=== PATIENT | female | born 2000 | race African-American/Black ===

== ENCOUNTER 2022-04-02 10:36 | Emergency (ER) | payer OTHER, SELFPAY ==
[2022-04-02] VITALS (14 sets, daily range): BP systolic 112–123; BP diastolic 57–70; PULSE 70–87; RESP 17; TEMP 36.6; O2SAT 95–100; BMI 24.2
--- NOTE | 2022-04-02 11:33 | DI.US.S_ITS ---
PROCEDURE: US ABDOMEN LIMITED INDICATIONS: RUQ PAIN TECHNIQUE: Real-time focused scanning was performed of the abdomen, with image documentation. COMPARISON: None. FINDINGS: The liver is normal in size and demonstrates no focal lesions. No findings of gallstones or sludge are seen. The gallbladder wall is not thickened, measuring 3 mm or less. No specific pericholecystic fluid is seen. The sonographic Castillo sign is negative. There is no biliary dilatation, the common bile duct measures 3-4 mm. No significant pancreatic abnormality is seen on these images. IMPRESSION: The gallbladder demonstrates a normal sonographic appearance. No biliary dilatation is seen. Dictated by: Jeffery Álvarez M.D. on 04/02/2022 at 11:47 Approved by: Jeffery Álvarez M.D. on 04/02/2022 at 11:48
[2022-04-02 11:55] LABS: Amorphous Sediment Urine 2+; Bacteria Urine Many (>30); Culture Indicated Urine Specimen Cultured; Mucus Urine 1+ (Negative); RBC Urine 0-1/HPF (0-5/HPF); Squamous Epithelial Cell Urine 1-5 /HPF (0-5/HPF); WBC Urine 10-30/HPF (0-5/HPF)
[2022-04-02 11:56] LABS: Add Manual Diff / Slide Review NO; Basophils Absolute Auto 0 /uL (0-100); Basophils Percent Auto 0.5 % (0-2); Eosinophils Absolute Auto 0 /uL (0-450); Eosinophils Percent Auto 0.3 % (2-4); Hematocrit 41.2 % (36-46); Hemoglobin 13.3 g/dL (12.0-16.0); Lymphocytes Absolute Auto 1200 /uL (1100-4500); Lymphocytes Percent Auto 12.3 % (25-40); Mean Corpuscular HGB Conc 32.2 % (30-36); Mean Corpuscular Hemoglobin 26.9 PG (26-34); Mean Corpuscular Volume 83.7 fL (80-100); Monocytes Absolute Auto 600 /uL (0-900); Monocytes Percent Auto 6.1 % (3-14); Neutrophils Absolute Auto 7700 /uL (1500-7000); Neutrophils Percent Auto 80.8 % (50-75); Platelet Count 300 X10^3/uL (150-400); Red Blood Cell Count 4.92 X10^6/uL (4.0-5.2); Red Cell Distribution Width 12.6 % (11.6-14.8); White Blood Cell Count 9.5 X10^3/uL (4.5-11.0)
[2022-04-02 12:15] LABS: Alanine Aminotransferase 16 IU/L (<35); Albumin 4.7 g/dL (3.5-5.0); Albumin Globulin Ratio 1.1 (1.0-2.8); Alkaline Phosphatase 69 U/L (38-126); Aspartate Aminotransferase 23 IU/L (14-36); Bilirubin Total 0.5 mg/dL (0.2-1.3); Blood Urea Nitrogen 10 mg/dL (7-17); Carbon Dioxide 29 mmol/L (22-32); Chloride 101 mmol/L (98-107); Estimated Glomerular Filt Rate > 60 mL/min (>60); Globulin 4.3 g/dL (1.7-4.1); Glucose 96 mg/dL (70-100); HEMOLYSIS < 15 (0-50); Lipase 85 U/L (23-300); Potassium 4.6 mmol/L (3.4-5.1); Sodium 140 mmol/L (137-145)
--- NOTE | 2022-04-02 15:18 | DI.RAD.S_ITS ---
PROCEDURE: XR CHEST 2V INDICATIONS: right upper abd pain/eval pulmonary patholgy TECHNIQUE: 2 views of the chest were acquired. COMPARISON: None. FINDINGS: Surgical changes and devices: None. Lungs and pleura: Lungs are clear. No pleural effusions or pneumothorax. Mediastinum: Mediastinal contours are normal. Heart size is normal. Bones and chest wall: No suspicious bony abnormalities. Soft tissues appear unremarkable. IMPRESSION: No acute cardiopulmonary disease process. Dictated by: Carmela Chamorro MD, PhD on 04/02/2022 at 15:32 Approved by: Carmela Chamorro MD, PhD on 04/02/2022 at 15:33
[2022-04-02] MEDS: MAG HYDROX/ALUMINUM/SIMETH SUS 20 ML, LIDOCAINE VISCOUS 2% 15 ML PO (15:37)
[2022-04-02 16:31] LABS: D Dimer 843 ng/ml (<500)
--- NOTE | 2022-04-02 17:35 | DI.CT.S_ITS ---
PROCEDURE: CT ANGIO CHEST PE PROTOCOL INDICATIONS: eval pe, elevated dimer TECHNIQUE: After the administration of intravenous contrast, 2 mm thick sections acquired from the pulmonary apices to the posterior costophrenic angles. 3-dimensional maximum intensity projection (MIP) coronal and sagittal reformats were then acquired through the thorax. For radiation dose reduction, the following was used: automated exposure control, adjustment of mA and/or kV according to patient size. COMPARISON: None. FINDINGS: Image quality: Excellent. Pulmonary arteries: Pulmonary arteries are normal in size, and demonstrate no intraluminal filling defects to suggest central pulmonary embolism. Lungs and pleura: Lungs are clear. No pleural effusions or pneumothorax. Central and peripheral airways are patent. Mediastinum: Heart size is normal, without pericardial effusion. No mediastinal or hilar adenopathy. Thoracic aorta is normal in caliber and enhancement. Esophagus is normal in caliber, without hiatal hernia. Bones and chest wall: No suspicious bony lesions. Ribs and thoracic spine appear intact throughout. Thyroid gland is unremarkable. No axillary or supraclavicular adenopathy. Skin thickening at the armpits. Abdomen: Visualized upper abdominal solid organs appear normal in the early arterial phase of enhancement. IMPRESSION: 1. No pulmonary embolism. 2. No acute airspace opacity. Dictated by: Zafar Rojas M.D. on 04/02/2022 at 18:54 Approved by: Zafar Rojas M.D. on 04/02/2022 at 18:59
--- NOTE | 2022-04-02 17:59 | DI.CT.S_ITS ---
PROCEDURE: CT ABDOMEN PELVIS W CON INDICATIONS: abdominal pain TECHNIQUE: After the administration of oral and IV contrast, axial sections were acquired from the lung bases to the pubic symphysis. Coronal and sagittal reformats were performed. For radiation dose reduction, the following was used: automated exposure control, adjustment of mA and/or kV according to patient size. COMPARISON: [facility], CT, CT ANGIO CHEST PE PROTOCOL, 04/02/2022, 17:44. FINDINGS: Image quality: Excellent. Lung bases: Unremarkable. Heart: No significant findings. ABDOMEN: Liver: No focal lesion. Gallbladder: Not distended. Biliary ducts: Unremarkable. Pancreas: No peripancreatic fluid collection. Spleen: No splenomegaly. Adrenal Glands: No nodule seen. Kidneys and Ureters: No hydronephrosis. Stomach and Bowel: Stomach, small bowel loops, and colon are unremarkable. Somewhat prominent stool in the colon. The appendix is not dilated. Peritoneum: No abnormal intraperitoneal fluid. No free air. Ventral Wall: No hernia. Abdominal Nodes: No retroperitoneal or mesenteric adenopathy by size criteria. Vessels: Aorta and inferior vena cava are normal in size. PELVIS: Pelvic Organs: Ovaries appear prominent. Vertically oriented uterus. Bladder: No stones. Pelvic Nodes: No enlarged lymph nodes. Miscellaneous: No inguinal hernias are seen. Bones: No suspicious lesion. IMPRESSION: No acute inflammatory process. No free fluid. Somewhat prominent stool in the colon. Dictated by: Zafar Rojas M.D. on 04/02/2022 at 19:00 Approved by: Zafar Rojas M.D. on 04/02/2022 at 19:04
--- NOTE | 2022-04-04 20:47 | ED_ITS ---
HPI - Abdominal Pain General Chief Complaint: Abdominal Pain Stated Complaint: pain in liver, gull bladder area Time Seen by Provider: 04/02/22 15:09 Source: patient Mode of arrival: Ambulatory History of Present Illness HPI narrative: 21-year-old female presenting with a localized to the right upper quadrant of the abdomen, right lateral chest, symptoms are constant, moderate to severe, have been present for several days. 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 However, given persistent and worsening symptoms, patient further the emergency department for further evaluation. Patient denies association with diet. No fevers. No lower abdominal pain. Related Data Allergies Allergy/AdvReac Type Severity Reaction Status Date / Time No Known Drug Allergies Allergy Verified 04/02/22 11:25 Patient History Social History Smoking Status: Unknown if ever smoked Smoking Status: Unknown if ever smoked alcohol intake frequency: holidays/special occasions only Substance Use Type: does not use Exam Narrative Exam Narrative: Vitals reviewed. Nursing note reviewed Constitutional: interactive HENT: Moist mucous membranes EYES: No scleral icterus NECK: no masses CV: Well perfused peripherally, no cyanosis present PULM: Unlabored respirations, symmetric chest rise ABD: Non-distended MS: No gross deformities, no asymmetric edema noted SKIN: Warm and dry. PSYCH: Appropriate affect NEURO: Follows simple commands, moves extremities, interactive with exam Initial Vital Signs Initial Vital Signs: Vital Signs Temperature 97.8 F 04/02/22 11:25 Pulse Rate 70 04/02/22 11:25 Respiratory Rate 17 04/02/22 11:25 Blood Pressure 119/68 04/02/22 11:25 Pulse Oximetry 100 04/02/22 11:25 Oxygen Delivery Method 04/02/22 11:25 Course Orders Ordered: Discontinued Medications Al Hydrox/Mg Hydrox/Simethicone 20 ml/ Lidocaine HCl 15 ml 0 ml PO NOW ONE Stop: 04/02/22 15:17 Last Admin: 04/02/22 15:37 Dose: 35 ml Documented By: DIANE Ondansetron HCl (Ondansetron 4 Mg Odt) 4 mg PO NOW PRN PRN Reason: Nausea And Vomiting Ondansetron HCl (Ondansetron 4 Mg/2 Ml Inj) 4 mg IV NOW PRN PRN Reason: Nausea And Vomiting MDM - Abdominal Pain Lab Data Result diagrams: 04/02/22 11:45 04/02/22 11:45 Labs: Lab Results 04/02/22 04/02/22 04/02/22 Range/Units 11:30 11:45 11:45 WBC 9.5 (4.5-11.0) X10^3/uL RBC 4.92 (4.0-5.2) X10^6/uL Hgb 13.3 (12.0-16.0) g/dL Hct 41.2 (36-46) % MCV 83.7 (80-100) fL MCH 26.9 (26-34) PG MCHC 32.2 (30-36) % RDW 12.6 (11.6-14.8) % Plt Count 300 (150-400) X10^3/uL Neut % (Auto) 80.8 H (50-75) % Lymph % (Auto) 12.3 L (25-40) % [place] % (Auto) 6.1 (3-14) % Eos % (Auto) 0.3 L (2-4) % Baso % (Auto) 0.5 (0-2) % Neut # (Auto) 7700 H (4629-1788) /uL Lymph # (Auto) 1200 (7292-4240) /uL [place] # (Auto) 600 (0-900) /uL Eos # (Auto) 0 (0-450) /uL Baso # (Auto) 0 (0-100) /uL D-Dimer (<500) ng/ml Sodium 140 (137-145) mmol/L Potassium 4.6 (3.4-5.1) mmol/L Chloride 101 (98-107) mmol/L Carbon Dioxide 29 (22-32) mmol/L BUN 10 (7-17) mg/dL Creatinine 0.91 (0.52-1.04) mg/dL Estimated GFR > 60 (>60) mL/min BUN/Creatinine Ratio 11.0 (6-22) Glucose 96 (70-100) mg/dL Calcium 10.0 (8.4-10.2) mg/dL Total Bilirubin 0.5 (0.2-1.3) mg/dL AST 23 (14-36) IU/L ALT 16 (<35) IU/L Alkaline Phosphatase 69 (38-126) U/L Total Protein 9.0 H (6.3-8.2) g/dL Albumin 4.7 (3.5-5.0) g/dL Globulin 4.3 H (1.7-4.1) g/dL Albumin/Globulin Ratio 1.1 (1.0-2.8) Lipase 85 (23-300) U/L Urine RBC 0-1/hpf (0-5/HPF) Urine WBC 10-30/hpf H (0-5/HPF) Ur Squamous Epith Cells 1-5 /hpf (0-5/HPF) Amorphous Sediment 2+ Urine Bacteria Many (>30) H (None) Urine Mucus 1+ H (Negative) Ur Culture Indicated? Specimen cultured 04/02/22 Range/Units 11:45 WBC (4.5-11.0) X10^3/uL RBC (4.0-5.2) X10^6/uL Hgb (12.0-16.0) g/dL Hct (36-46) % MCV (80-100) fL MCH (26-34) PG MCHC (30-36) % RDW (11.6-14.8) % Plt Count (150-400) X10^3/uL Neut % (Auto) (50-75) % Lymph % (Auto) (25-40) % [place] % (Auto) (3-14) % Eos % (Auto) (2-4) % Baso % (Auto) (0-2) % Neut # (Auto) (6080-4119) /uL Lymph # (Auto) (3705-4503) /uL [place] # (Auto) (0-900) /uL Eos # (Auto) (0-450) /uL Baso # (Auto) (0-100) /uL D-Dimer 843 H (<500) ng/ml Sodium (137-145) mmol/L Potassium (3.4-5.1) mmol/L Chloride (98-107) mmol/L Carbon Dioxide (22-32) mmol/L BUN (7-17) mg/dL Creatinine (0.52-1.04) mg/dL Estimated GFR (>60) mL/min BUN/Creatinine Ratio (6-22) Glucose (70-100) mg/dL Calcium (8.4-10.2) mg/dL Total Bilirubin (0.2-1.3) mg/dL AST (14-36) IU/L ALT (<35) IU/L Alkaline Phosphatase (38-126) U/L Total Protein (6.3-8.2) g/dL Albumin (3.5-5.0) g/dL Globulin (1.7-4.1) g/dL Albumin/Globulin Ratio (1.0-2.8) Lipase (23-300) U/L Urine RBC (0-5/HPF) Urine WBC (0-5/HPF) Ur Squamous Epith Cells (0-5/HPF) Amorphous Sediment Urine Bacteria (None) Urine Mucus (Negative) Ur Culture Indicated? Point of care testing: Point of Care Testing Test Results Negative Urine Dip Bedside Urine Glucose Negative Bedside Urine Bilirubin - Negative Bedside Urine Ketone +/- 5 Urine Specific [place] 1.020 Bedside Urine Occult Blood - Negative Bedside Urine pH 6.0 Bedside Urine Protein - Negative Bedside Urine Urobilinogen - Negative Bedside Urine Nitrite - Negative Bedside Urine Leukocytes +/- 15 Esterase MDM Narrative Medical decision making narrative: 21-year-old female presenting with right upper quadrant abdominal pain and right anterior chest pain. Vital signs on presentation notable for no significant abnormalities. Physical exam on presentation notable for reassuring cardiopul monary exam, mild right upper quadrant abdominal pain, no peritonitis noted. Initial concern for acute intra-abdominal pathology including biliary pathology with cholecystitis, choledocholithiasis, cholangitis, pancreatitis, gastritis, occult pyelonephritis versus ureteral calculi, pulmonary embolism, pneumonia, viral syndrome, musculoskeletal strain. Broad screening labs obtained on presentation. Right upper quadrant ultrasound obtained and without clear evidence of biliary pathology. Screening labs notable for no elevation of the patient's LFTs or alk-phos to suggest choledocholithiasis. D-dimer obtained given patient's persistent right-sided chest pain and right upper abdominal pain concern pulmonary infarct, D-dimer is elevated and subsequent CT chest was obtained to further evaluate. CT chest abdomen and pelvis without clear evidence of acute pathology. Discussed findings with patient at bedside. On repeat evaluation, patient with stable exam. Given overall reassuring evaluation in the emergency department, discussed plan for discharge and close outpatient follow up. Discussed etiology to explain the patient's symptoms following extensive workup in the emergency department remains unclear. Close return precautions were discussed. Discharge Plan Departure Patient Disposition: Home Clinical Impression: Abdominal pain, Chest pain Activity Restrictions/Additional Instructions: We did not find any acute cause for your chest pain or abdominal pain as discus sed. Please follow up in the outpatient setting with your primary care physician. Please perform modified duty and not lift more than 15 lb over the next 3-5 days. Please return to the emergency department develops new or worsening symptoms. Referrals: *Temp,ED* [Primary Care Provider] - Stand Alone Forms: Patient Portal/API, Work Release Note
== END 2022-04-02 19:44 | disposition home or self-care (01) ==
PROVIDERS: Emergency Provider Emergency Medicine
DX: R10.11 Right upper quadrant pain (principal); R07.9 Chest pain, unspecified
CPT/HCPCS: 71046; 71275; 74177; 76705; 80053; 81003; 81015; 81025; 83690; 85025; 85379; 87086; 99283; 99284

== ENCOUNTER 2024-01-17 06:38 | Emergency (ER) | payer OTHER, SELFPAY ==
[2024-01-17 06:43] VITALS: BP 130/89; PULSE 74; RESP 18; TEMP 36.7; O2SAT 100; BMI 25.7
--- NOTE | 2024-01-17 06:43 | DI.RAD.S_ITS ---
PROCEDURE: XR TIBIA FUBULA RT 2V INDICATIONS: weight drop onto R you TECHNIQUE: 2 views of the tibia and fibula were acquired. COMPARISON: None. FINDINGS: Bones: No fractures or dislocations. No suspicious bony lesions. Soft tissues: No suspicious soft tissue calcifications or masses. IMPRESSION: No acute bony abnormality can be seen on these plain films. Dictated by: Jeffery Álvarez M.D. on 01/17/2024 at 6:08 Approved by: Jeffery Álvarez M.D. on 01/17/2024 at 6:09
[2024-01-17 06:47] VITALS: PULSE 71; O2SAT 99
--- NOTE | 2024-01-17 06:48 | PC.NURSE ---
Ice pack applied
[2024-01-17 07:00] VITALS: PULSE 71; O2SAT 99
--- NOTE | 2024-01-17 07:07 | ED_ITS ---
HPI - Extremity Injury (Lower) General Chief Complaint: Extremity Injury, Lower Stated Complaint: dropped a weight on rt leg Time Seen by Provider: 01/17/24 06:43 Source: patient Mode of arrival: Wheelchair History of Present Illness HPI Narrative: 23-year-old woman otherwise healthy, prior strokes fracture x3 in the right lower tibia. Was weight lifting this morning dropped to 45 lb plate on approximately the same area where the prior stress fractured has been. She had noticed that she has been having increasing pain and tenderness after a 2 mi run in the same place over the last week. She is concerned that she is recurrent stress fracture and acute injury from the trauma of dropping the weight on the anterior you. Related Data Allergies Allergy/AdvReac Type Severity Reaction Status Date / Time No Known Drug Allergies Allergy Verified 04/02/22 11:25 Review of Systems Review of Systems Narrative: Pertinent positive and negative findings as per HPI Patient History Medical History (Updated 01/17/24 @ 07:28 by Jessica Maria MD) Stress fracture Social History Smoking Status: Unknown if ever smoked Smoking Status: Unknown if ever smoked alcohol intake frequency: holidays/special occasions only Substance Use Type: does not use Exam Initial Vital Signs Initial Vital Signs: Vital Signs Temperature 98.1 F 01/17/24 06:43 Pulse Rate 74 01/17/24 06:43 Respiratory Rate 18 01/17/24 06:43 Blood Pressure 130/89 01/17/24 06:43 Pulse Oximetry 100 01/17/24 06:43 Oxygen Delivery Method Room Air 01/17/24 06:43 General: Alert appropriate in no acute distress Respiratory: Able to speak in full sentences, no obvious respiratory distress Skin: No obvious rashes, warm and dry Neurologic: Grossly intact no obvious asymmetries or abnormalities Psych: appropriate insight and affect, cooperative Extremity: Contusion without obvious hematoma over the right mid you. Point tenderness. No tenderness to the knee or ankle. She is able to bear weight. No tenderness to the gastroc or soleus Course Orders Ordered: ED Orders 01/17/24 06:43 XR tibia fibula RT 2V Stat Vital Signs Vital signs: Vital Signs - 8 hr 01/17/24 06:43 Temperature 98.1 F Pulse Rate 74 Respiratory Rate 18 Blood Pressure 130/89 Pulse Oximetry 100 Oxygen Delivery Method Room Air MDM - Extremity Injury (Lower) MDM Narrative Medical decision making narrative: 23-year-old woman with concern for recurrent stress fracture with increasing pain in the right anterior you over the last week. She has again stopped running. She had been doing more rowing, weight lifting and today dropped to 45 lb plate on her leg. Comes in for evaluation. X-rays do not show acute hematomas, obvious fractures or obvious stress fracture.. No evidence that additional imaging is needed urgently. Suggested 2 days off work, work tasks include bending lifting and twisting all day. After that recommended light duty that does not include standing or lifting with the lower body until she has been seen by Orthopedic surgery. As part of an outpatient workup I believe she needs an MRI to confirm presence or absence of recurrent stress fracture. Discussed use of ibuprofen and Tylenol, questions are answered she is safe for discharge Discharge Plan Departure Patient Disposition: Home Clinical Impression: Contusion of right tibia, Pain of right tibia Instructions: DI for Stress Fracture, DI for Contusion Activity Restrictions/Additional Instructions: Thank you for coming in today You had 2 issues. The acute issue after dropping the 45 template on your right you is contusion, does not look like there is significant bleeding around the bone or obvious immediate fractures. Ice, rest crutches as needed and gentle mobilization we will help with this Increasing right tibial pain over the last week as you increased mileage again is concerning for recurrent stress fracture, particularly in light of the fact that you had 3 stress fractures with similar pain presentation fairly recently. We do not do MRIs for nonemergent issues in the emergency department, however, I do think that you need to be seen with likely referral to Orthopedic surgery. I do think that an MRI is indicated and we will need to be discussed with your primary care provider. You can call [facility] at [phone] to schedule follow up with Orthopedic surgery with concerns for right tibial stress fracture In the meantime, I would recommend rest for 48 hours. After that when he returned to work I would recommend no extended walking, lifting or lower extremity weight work until you have been further evaluated by the orthopedic surgeon. Using 400 mg of ibuprofen (2 [id number] pills) and 1 Tylenol every 6 hours can be very helpful in controlling pain. If you find that you are getting worse or develop any new symptoms, please feel free to return to the emergency department for further evaluation. Stand Alone Forms: Patient Portal/API, Work Release Note
[2024-01-17] MEDS: IBUPROFEN 400 MG TABLET PO (07:21)
[2024-01-17] MEDS: ACETAMINOPHEN 325 MG TABLET PO (07:21)
[2024-01-17 07:30] VITALS: PULSE 71; O2SAT 100
== END 2024-01-17 07:39 | disposition home or self-care (01) ==
PROVIDERS: Emergency Provider Emergency Medicine
DX: S80.11XA Contusion of right lower leg, initial encounter (principal); M79.604 Pain in right leg; W22.8XXA Striking against or struck by other objects, initial encounter; Y93.89 Activity, other specified
CPT/HCPCS: 73590; 99283

== ENCOUNTER → 2024-05-18 08:46 | Outpatient (CLI) | payer OTHER, SELFPAY ==
--- NOTE | 2024-05-18 08:48 | DI.NM.S_ITS ---
PROCEDURE: NM BONE 3 PHASE RADIOPHARMACEUTICAL: 22 mCi Tc-99m MDP IV. INDICATIONS: traumatic ischemia of muscle TECHNIQUE: Multiple bone scintigrams were obtained after intravenous injection of Tc-99m MDP, including flow, blood pool, and delayed images centered to the region of interest. COMPARISON: [facility], CR, XR TIBIA FIBULA LEFT, 01/21/2024, 9:38. [facility], CR, XR TIBIA FIBULA RT 2V, 01/17/2024, 6:43. FINDINGS: On the blood flow images, no abnormal or asymmetric blood flow activity is identified. On the blood pool images, no abnormal or asymmetric blood pool activity is seen. On the delayed images, there is a normal appearance of the bones. No abnormal soft tissue uptake is seen. IMPRESSION: Normal bone scan, without abnormal bony or soft tissue uptake seen. Dictated by: Jeffery Álvarez M.D. on 05/18/2024 at 17:38 Approved by: Jeffery Álvarez M.D. on 05/18/2024 at 17:39
== END ==
DX: T79.6XXA Traumatic ischemia of muscle, initial encounter (principal)
CPT/HCPCS: 78315; A9503

== ENCOUNTER → 2024-07-21 12:10 | Outpatient (CLI) | payer OTHER, SELFPAY ==
--- NOTE | 2024-07-21 12:11 | DI.RAD.S_ITS ---
PROCEDURE: FL ARTHROGRAM SHOULDER RT INDICATIONS: pain and possible tear COMPARISON: None. TECHNIQUE: The indications, alternatives, benefits, risks, and complications of the procedure were explained to the patient. Written informed consent was obtained and placed in the chart. The shoulder was examined fluoroscopically and a site for needle placement chosen for entry into the glenohumeral joint from an anterior approach. The skin was prepped and draped in a sterile fashion, and 1% lidocaine infiltrated from skin down to joint capsule. A spinal needle was inserted into the glenohumeral joint, and a small amount of iodinated contrast media injected to confirm intra-articular placement of the needle tip. This was followed by approximately 12 mL dilute solution of a gadolinium containing MR contrast agent. The needle was removed and a dressing was applied. The patient was given postprocedural instructions and sent to the MR suite for MR imaging. FINDINGS: A single fluoroscopic spot image demonstrates intra-articular location of injected iodinated contrast. IMPRESSION: Successful fluoroscopically guided administration of dilute Gadolinium solution into the shoulder joint for MR arthrogram. Dictated by: Kelechi Jimenez M.D. on 07/21/2024 at 15:48 Approved by: Kelechi Jimenez M.D. on 07/21/2024 at 15:48
--- NOTE | 2024-07-21 12:12 | DI.MRI.S_ITS ---
PROCEDURE: MR SHOULDER RT W CON INDICATIONS: pain and possible tear TECHNIQUE: After the administration of 12 mL of dilute intra-articular Gadolinium contrast, oblique coronal T1 and T2 spin echo with fat saturation, oblique sagittal T1 spin echo with and without fat saturation, oblique sagittal T2 fast spin echo with fat saturation, axial T1 spin echo with fat saturation through the shoulder. COMPARISON: None. FINDINGS: Image quality: Excellent. Rotator cuff: In the supraspinatus, there is focal low-grade interstitial tear at the critical zone of the mid fiber (8:8). The infraspinatus is unremarkable. The teres minor is unremarkable. The subscapularis is unremarkable. No muscle edema or fatty atrophy. Bones and bursae: Mild degenerative changes of the acromioclavicular joint. Type 2 acromion. No os acromiale. Mild subacromial/subdeltoid bursitis. No contrast extravasation into the subacromial/subdeltoid bursa. Mild subchondral cystic changes at the posterior greater tuberosity, reactive. No acute fracture. No focal chondral defect of the glenohumeral articulation. Capsule and soft tissues: Superior labral tear, extending anteriorly to the anterior inferior labrum. No paralabral cyst. The extra-articular and intra-articular biceps tendon unremarkable. No intra-articular body. IMPRESSION: 1. Focal low-grade tear of the supraspinatus. 2. Mild degenerative changes of the acromioclavicular joint. 3. Labral tear. Dictated by: Ida Porter M.D. on 07/21/2024 at 14:23 Approved by: Ida Porter M.D. on 07/21/2024 at 14:30
[2024-07-21] MEDS: LIDOCAINE 1% 20 ML INJ (13:15)
[2024-07-21] MEDS: SODIUM CHLORIDE 0.9 % 20 ML VIAL IV (13:15)
== END ==
PROVIDERS: PCP Nurse Practitioner Family; Referring Provider Nurse Practitioner Family; Visit Provider Nurse Practitioner Family
DX: S43.491A Other sprain of right shoulder joint, initial encounter (principal); M19.011 Primary osteoarthritis, right shoulder; M25.511 Pain in right shoulder
CPT/HCPCS: 23350; 73040; 73222; A9579; Q9967